=== PATIENT | male | born 2000 | race American Indian/Alaskan Native ===

== ENCOUNTER 2025-07-28 19:17 | Emergency (ER) | payer OTHER ==
[~2025-07-28] VITALS: Ht 177.8 cm; Wt 105.0 kg
[2025-07-28] MEDS ORDERED: DIPHTH,PERTUSS(ACELL),TET VAC 0.5 ML SYRINGE IM ONE (20:30)
[2025-07-28] MEDS ORDERED: LIDOCAINE/RACEPINEP/TETRACAINE 3 ML SYR TOP ONE (21:15)
[2025-07-28 22:59] VITALS: BP 142/92
== END 2025-07-28 23:01 | disposition home or self-care (01) ==
LOC: ED 19:17
DX: S01.112A Laceration without foreign body of left eyelid and periocular area, initial encounter (principal); V00.131A Fall from skateboard, initial encounter
CPT/HCPCS: 12013; 90471; 90715; 99282-25